=== PATIENT | male | born 1945 | race Caucasian/White ===

== ENCOUNTER 2018-04-23 09:54 | Observation (INO) | payer OTHER ==
--- OUTSIDE RECORDS SUMMARY | 2018-04-23 09:57 | XMS REPORT ---
:1945 Author Organization [facility] Address [address] [place] [address] [address] [place] [address] Care Team Providers Name Role Phone Unavailable Unavailable Unavailable Payers Payer Name Policy Type Policy Number Effective Date Expiration Date Problems This patient has no known problems. Allergies, Adverse Reactions, Alerts Allergy Name Allergy Status Severity Reaction(s) Onset Inactive Treating Comments Type Date Date Clinician No Known Drug DA Active U Intolerances 8-27 00:00: 00 Medications This patient has no known medications.
--- OUTSIDE RECORDS SUMMARY | 2018-04-23 09:57 | XMS REPORT | Clinical Summary ---
:1945 Author Organization [facility] Address [address] [place] [address] Care Team Providers Name Role Phone Mykel Crawford MD Primary Care Provider Unavailable Allergies No Known Allergies Medications Medication Sig Dispensed Refills Start Date End Date Status gabapentin Take 600 mg by mouth 3 (three) times a day. 1800mg po hs and 0 09/16/2015 Active (NEURONTIN) 300 MG 600mg po tid capsule HYDROcodone-acetam 2 tablets. q 0 11/02/2015 Active inophen (NORCO 4-6 hours 10-325) 10-325 mg per tablet quinapril 0 11/01/2015 Active (ACCUPRIL) 20 MG tablet traZODone 0 09/16/2015 Active (DESYREL) 150 MG tablet aspirin (ECOTRIN) Take 81 mg by 0 Active 81 MG enteric mouth. coated tablet simvastatin 0 04/27/2016 Active (ZOCOR) 40 MG tablet tiZANidine 0 04/28/2016 Active (ZANAFLEX) 4 MG tablet magnesium oxide Take 400 mg by 0 Active (MAG-OX) 400 mg mouth daily. tablet ipratropium-albute 0 08/09/2017 Active rol (DUO-NEB) 0.5-2.5 mg/mL nebulizer montelukast Take 10 mg by 0 Active (SINGULAIR) 10 mg mouth nightly. tablet albuterol (PROAIR Inhale 2 puffs 0 Active HFA,PROVENTIL every 6 (six) HFA,VENTOLIN HFA) hours as 90 mcg/actuation needed for inhaler wheezing. PRIMIDONE ORAL Take 50 mg by 0 Active mouth 2 (two) times a day. clopidogrel 0 10/20/2015 10/09/2017 Discontinued (PLAVIX) 75 mg tablet atenolol 0 04/12/2016 10/09/2017 Discontinued (TENORMIN) 25 MG tablet HYDROcodone-acetam Take 1 tablet 0 10/09/2017 Discontinued inophen (NORCO) by mouth. 10-325 mg per tablet hxda-hjpi-xzx-yuc- Take by mouth. 0 01/30/2018 Discontinued tpi-ymen-pwz [phone] mg tablet cholecalciferol, Take 5,000 0 10/09/2017 Discontinued vitamin D3, Units by mouth (VITAMIN D3) 1,000 daily. unit tablet selenium 50 mcg Take 50 mcg by 0 10/09/2017 Discontinued tablet mouth 2 (two) times a day. meloxicam (MOBIC) 0 09/11/2017 11/09/2017 Discontinued 7.5 mg tablet DULoxetine 0 07/27/2017 11/09/2017 Discontinued (CYMBALTA) 30 MG capsule celecoxib Take 1 capsule 18 capsule 0 11/09/2017 11/23/2017 Discontinued (CeleBREX) 200 MG (200 mg total) capsule by mouth daily for 18 days. With food DULoxetine Take 30 mg by 0 01/31/2018 Discontinued (CYMBALTA) 30 MG mouth daily. capsule Active Problems Problem Noted Date Aftercare following surgery of the musculoskeletal system 03/01/2018 Complication internal fixation device such as nail, plate, or gian 01/18/2018 Overview: Added automatically from request for surgery [id number] Postlaminectomy syndrome, lumbar region 01/18/2018 Overview: Added automatically from request for surgery [id number] Complication of internal fixation device 12/07/2017 Chronic midline posterior neck pain 05/03/2016 Arthrodesis status 11/05/2015 Lumbar post-laminectomy syndrome 11/05/2015 Low back pain 11/05/2015 Encounters Date Type Specialty Care Team Description 03/14/2018 Office Visit Orthopedic Surgery Rolo, Arthrodesis status ( Primary Dx); Tarik Castellon MD Lumbar post-laminectomy syndrome 03/01/2018 Office Visit Orthopedic Surgery Rolo, Aftercare following Tarik Castellon MD surgery of the musculoskeletal system (Primary Dx) 02/08/2018 Office Visit Orthopedic Surgery [facility] Aftercare following Tarik Castellon MD surgery of the musculoskeletal system (Primary Dx) 01/31/2018 Orders Only Orthopedic Surgery Linda Harden, PAAriela 01/30/2018 Surgery Orthopedic Surgery [facility], Remove L3-4-5 internal Tarik Castellon MD fixation , explore and augment fusion, resect the spinous processes of L1 & L2 01/30/2018 Anesthesia Event Orthopedic Surgery Sohan Yung MD 01/30/2018 Hospital Encounter Orthopedic Surgery [place], Complication internal fixation device such as nail, plate, or gian, initial encounter (HCC); Tarik Castellon MD Arthrodesis status; Postlaminectomy syndrome, lumbar region 01/21/2018 Prep for Surgery Orthopedic Surgery Linda Harden, PA-C 01/18/2018 Prep for Surgery Orthopedic Surgery Dereck, Complication internal fixation device such as nail, plate, or gian, initial encounter (HCC) ( Primary Dx); Linda Castellon Arthrodesis status; PA-C Postlaminectomy syndrome, lumbar region 01/17/2018 Documentation Orthopedic Surgery Linda Harden, PA-C 01/04/2018 Office Visit Orthopedic Surgery Mandyjhoan, Complication of internal fixation device, sequela (Primary Dx); Tarik Castellon MD Arthrodesis status; Lumbar post-laminectomy syndrome 12/14/2017 Hospital Encounter Radiology Tarik Seth MD 12/12/2017 Hospital Encounter Radiology [place], Complication of internal fixation device, subsequent encounter; Tarik Castellon MD Arthrodesis status; Chronic midline posterior neck pain 12/07/2017 Office Visit Orthopedic Surgery [place], Arthrodesis status ( Primary Dx); Tarik Castellon MD Lumbar post-laminectomy syndrome; Chronic right-sided low back pain with sciatica, sciatica laterality unspecified; Complication of internal fixation device, subsequent encounter 12/07/2017 Orders Only Orthopedic Surgery Dereck, Complication of internal fixation device, subsequent encounter (Primary Dx); Linda Castellon Arthrodesis status; PA-C Chronic midline posterior neck pain 11/23/2017 Office Visit Orthopedic Surgery [place], Lumbar post- laminectomy syndrome (Primary Dx); Tarik Castellon MD Arthrodesis status; Chronic bilateral low back pain with sciatica, sciatica laterality unspecified 11/09/2017 Hospital Encounter Radiology Tarik Seth MD 11/09/2017 Office Visit Orthopedic Surgery [place], Lumbar post- laminectomy syndrome (Primary Dx); Tarik Castellon MD Chronic bilateral low back pain with sciatica, sciatica laterality unspecified 10/25/2017 Telephone Orthopedic Surgery Tarik Seth MD 10/09/2017 Office Visit Orthopedic Surgery [place], Lumbar post- laminectomy syndrome (Primary Dx); Tarik Castellon MD Arthrodesis status; Acute low back pain, unspecified back pain laterality, with sciatica presence unspecified; Pain of right hip joint; History of right hip replacement after 04/22/2017 Family History Medical History Relation Name Comments Heart disease Mother Relation Name Status Comments Mother Social History Tobacco Use Types Packs/Day Years Used Date Current Every Day Smoker Smokeless Tobacco: Never Used Alcohol Use Drinks/Week oz/Week Comments No rare Alcohol Habits Answer Date Recorded How often do you have a drink containing alcohol? Never 01/30/2018 How many drinks containing alcohol do you have on a typical Not asked day when you are drinking? How often do you have six or more drinks on one occasion? Not asked Sex Assigned at Date Recorded Not on file Job Start Date Occupation Industry Not on file Not on file Not on file Travel History Travel Start Travel End No recent travel history available. Last Filed Vital Signs Vital Sign Reading Time Taken Blood Pressure 183/78 01/30/2018 3:46 PM [employer] Pulse 57 01/30/2018 3:46 PM [employer] Temperature 37.1 C (98.7 F) 01/30/2018 2:55 PM [employer] Respiratory Rate 19 01/30/2018 2:55 PM [employer] Oxygen Saturation 96% 01/30/2018 2:55 PM [employer] Inhaled Oxygen Concentration - - Weight 54.9 kg (121 lb) 02/08/2018 10:51 AM [employer] Height 172.7 cm (5' 8") 02/08/2018 10:51 AM [employer] Body Mass Index 18.4 02/08/2018 10:51 AM [employer] Plan of Treatment Date Type Specialty Care Team Description 06/07/2018 Office Visit Orthopedic Surgery Tarik Seth MD [address] [address] Health Maintenance Due Date Last Done Comments COLON CANCER SCREENING 1996 SHINGLES VACCINES (#1) 1996 65+ PNEUMOCOCCAL VACCINE (1 of 2 - PCV13) 10/20/2011 PNEUMOCOCCAL POLYSACCHARIDE VACCINE AGE 65 AND OVER 10/20/2011 INFLUENZA VACCINE 09/05/2017 Procedures Procedure Name Priority Date/Time Associated Comments Diagnosis XR LUMBAR SPINE 2 OR Routine 02/08/2018 10:59 Orthopedic Results for this 3 VW AM [employer] aftercare procedure are in the results section. SURGICAL PATHOLOGY Routine 01/30/2018 12:17 Results for this REQUEST PM [employer] procedure are in the results section. MN AN ELECTIVE Routine 01/30/2018 10:30 ENDOTRACHEAL AIRWAY AM [employer] Procedure Note - Sunday Barth CRNA - 01/30/2018 10:30 AM [employer] ANESTHESIA INTUBATION Date/Time: 01/30/2018 10:11 AM Performed by: Sunday Barth CRNA Authorized by: Sohan Yung MD Location: OR Urgency: Elective Difficult Airway: No Anesthesiologist: Sohan Yung MD Resident/TOUCHER UP/AA: Sunday Barth CRNA Performed by: resident/TOUCHER UP/AA Preoxygenated with 100% O2: Yes Mask Ventilation: Easy mask (100 mm OA; edentulous.) Final Airway Type: Endotracheal airway Final Endotracheal Airway: ETT Cuffed: Yes Technique Used: Direct laryngoscopy Devices/Methods Used in Placement: Intubating stylet Insertion Site: Oral Blade Type: Henley Laryngoscope Blade/Videolaryngoscope Blade Size: 2 ETT Size (mm): 8.0 Cuff at minimum occlusion pressure: Yes Measured from: Lips ETT to Lips (cm): 22 Placement Verified by: CO2 detection, direct visualization and equal breath sounds Laryngoscopic view: Grade I - full view of glottis Rapid Sequence Induction (RSI): No Modified RSI: No Number of Attempts at Approach: 1 HEMILAMINECTOMY, SPINE, 01/30/2018 10:15 AM Complication internal fixation LUMBAR, SINGLE LEVEL, [employer] device such as nail, plate, or POSTERIOR APPROACH gian, initial encounter (HCC) Arthrodesis status Postlaminectomy syndrome, lumbar region Case Notes POSSIBLE EXTENDED STAY Special Needs POSSIBLE EXTENDED STAY, Rajeev table, Synthese Click X removal system, universal removal set, WRS palencia and fusion sets, Ag matrix (5x2.5 cm) ESTIMATED GFR STAT 01/30/2018 8:37 AM Results for this [employer] procedure are in the results section. BASIC METABOLIC STAT 01/30/2018 8:37 AM Results for this PANEL [employer] procedure are in the results section. HC COMPLETE BLD STAT 01/30/2018 8:37 AM Results for this COUNT W/AUTO DIFF [employer] procedure are in the results section. IR FLUOROSCOPY Routine 12/14/2017 8:56 AM Complication of Results for this GUIDED LOCAL [employer] internal fixation procedure are in INJECTION device, subsequent the results encounter section. Arthrodesis status Chronic midline posterior neck pain MRI LUMBAR SPINE WO Routine 11/30/2017 8:30 AM Lumbar Results for this CONTRAST CDT post-laminectomy procedure are in syndrome the results Arthrodesis status section. Chronic bilateral low back pain with sciatica, sciatica laterality unspecified NM BONE SCAN Routine 10/22/2017 7:51 AM Results for this EXTERNAL STUDY CDT procedure are in the results section. XR LUMBAR SPINE Routine 10/09/2017 9:02 AM Lumbar Results for this COMPLETE 4+ VW CDT post-laminectomy procedure are in syndrome the results Arthrodesis status section. XR HIP 2-3 VIEWS Routine 10/09/2017 9:02 AM Pain of right hip Results for this RIGHT CDT joint procedure are in History of right hip the results replacement section. after 04/22/2017 Results XR Lumbar Spine 2 Or 3 Vw (02/08/2018 10:59 AM [employer]) Narrative Performed At AP and lateral x-rays of the lumbar spine today demonstrate postoperative HM [facility] changes at multiple levels.The previously noted pedicle screws are now absent.There is no change in overall alignment compared to those of the previous study. Performing Organization Address City/[facility]/Zipcode Phone Number [facility] [address] [place] [address] Surgical pathology request (01/30/2018 12:17 PM [employer]) [facility] DEPARTMENT OF PATHOLOGY AND GENOMIC MEDICINE Surgical pathology report See link below for PDF [facility] DEPARTMENT OF Lab Report PATHOLOGY AND GENOMIC MEDICINE Result status This is Final Report [facility] DEPARTMENT OF for [id number] PATHOLOGY AND GENOMIC MEDICINE Performing Organization Address City/[facility]/Zipcode Phone Number [facility] DEPARTMENT OF PATHOLOGY AND [address] [place] [address] GENOMIC MEDICINE Estimated GFR (01/30/2018 8:37 AM [employer]) Estimated GFR 75 mL/min/1.73 m2 LOU [facility] Comment: [facility]IENT [facility]ENTER CatergoryUnitsInterpretation G1 >=90 Normal or high G2 60-89Mildly decreased [id number] to moderately decreased [id number] to severely decreased G4 15-29Severely decreased G5 <15Kidney failure The eGFR was calculated using the Chronic Kidney Disease Epidemiology Collaboration (CKD-EPI) equation. Interpretation is based on recommendations of the National Kidney Foundation-Kidney Disease Outcomes Quality Initiative (NKF-KDOQI) published in 2014. Specimen Plasma specimen Performing Organization Address City/[facility]/Zipcode Phone Number [facility] DEPARTMENT OF PATHOLOGY AND [address] [place] [phone] CBC with platelet and differential (01/30/2018 8:37 AM [employer]) WBC 6.11 4.50 - 11.00 k/uL [facility] RBC 4.47 4.40 - 6.00 m/uL [facility] HGB 14.2 14.0 - 18.0 g/dL [facility] HCT 44.5 41.0 - 51.0 % [facility] MCV 99.6 82.0 - 100.0 fL [facility] MCH 31.8 27.0 - 34.0 pg [facility] MCHC 31.9 31.0 - 37.0 g/dL [facility] RDW - SD 51.2 37.0 - 55.0 fL [facility] MPV 9.4 8.8 - 13.2 fL [facility] Platelet count 141 (L) 150 - 400 k/uL [facility] Neutrophils 63.9 39.0 - 69.0 % [facility] Lymphocytes 29.1 25.0 - 45.0 % [facility] Monocytes 6.2 0.0 - 10.0 % [facility] Eosinophils 0.5 0.0 - 5.0 % [facility] Basophils 0.3 0.0 - 1.0 % [facility] Specimen Blood Performing Organization Address City/State/Zipcode Phone Number [facility] DEPARTMENT OF PATHOLOGY AND [address] [place] [address] [address] Basic metabolic panel (01/30/2018 8:37 AM [employer]) Sodium 137 135 - 148 mEq/L [facility] Potassium 5.4 (H) 3.5 - 5.0 mEq/L [facility] Chloride 102 98 - 112 mEq/L [facility] CO2 27 24 - 31 mEq/L [facility] Anion gap 8@ANIO 7 - 15 mEq/L [facility] BUN 14 8 - 23 mg/dL [facility] Creatinine 1.00 0.70 - 1.20 mg/dL [facility] Glucose 85 65 - 99 mg/dL [facility] Calcium 8.8 8.8 - 10.2 mg/dL [facility] Specimen Plasma specimen Performing Organization Address City/State/Zipcode Phone Number [facility] DEPARTMENT OF PATHOLOGY AND [address] [place] [address] GENOMIC MEDICINE [facility] [address] [place] [address] IR Fluoroscopy Guided Local Injection (12/14/2017 8:56 AM [employer]) Narrative Performed At EXAMINATION:Fluoroscopic-guided bilateral L3-L5 hardware HM [facility] infiltration with local anesthetic and steroids. CLINICAL HISTORY:T84.9XXD Unspecified complication of internal orthopedic prosthetic deviceimplant and graftsubsequent encounter, Z98.1 Arthrodesis status, back and right hip pain COMPARISON:None. Findings: Informed consent was obtained. The lower back was prepped and draped in usual sterile fashion. 1% lidocaine was as for local anesthesia. Under intermittent fluoroscopic guidance, 25-gauge needle was advanced at the junction of the left L4 transpedicular screw in the L4 vertebra and another 25-gauge needle was advanced to the junction of the right L5 transpedicular screw and L5 vertebra. Injection of 2-3 cc of Omnipaque 240 in each needle did not show any significant vasculature. Then 1.5 cc of Marcaine 0.25% and 6 mg of dexamethasone were injected into each needle. No complications. Total fluoroscopic time was 1.4 minutes. Total radiation dose was 47 mGy. IMPRESSION: Successful bilateral L3-L5 hardware infiltration with local anesthetic and steroids. [id number] Procedure Note Hm Interface, Radiology Results Incoming - 12/14/2017 11:31 AM [employer] EXAMINATION: Fluoroscopic-guided bilateral L3-L5 hardware infiltration with local anesthetic and steroids. CLINICAL HISTORY: T84.9XXD Unspecified complication of internal orthopedic prosthetic device implant and graft subsequent encounter, Z98.1 Arthrodesis status, back and right hip pain COMPARISON: None. Findings: Informed consent was obtained. The lower back was prepped and draped in usual sterile fashion. 1% lidocaine was as for local anesthesia. Under intermittent fluoroscopic guidance, 25-gauge needle was advanced at the junction of the left L4 transpedicular screw in the L4 vertebra and another 25-gauge needle was advanced to the junction of the right L5 transpedicular screw and L5 vertebra. Injection of 2-3 cc of Omnipaque 240 in each needle did not show any significant vasculature. Then 1.5 cc of Marcaine 0.25% and 6 mg of dexamethasone were injected into each needle. No complications. Total fluoroscopic time was 1.4 minutes. Total radiation dose was 47 mGy. IMPRESSION: Successful bilateral L3-L5 hardware infiltration with local anesthetic and steroids. [id number] Performing Organization Address City/State/Zipcode Phone Number [facility] [address] [place] [address] MRI Lumbar Spine Wo Contrast (11/30/2017 8:30 AM CDT) Narrative Performed At EXAMINATION: MRI LUMBAR SPINE WO CONTRAST [facility] CLINICAL HISTORY: M96.1 Postlaminectomy syndromenot elsewhere classified, Z98.1 Arthrodesis status, Back [id number] conservative txpersistent sx COMPARISON:Lumbar spine x-rays from October 09, 2017. TECHNIQUE: Multiplanar multisequence noncontrast enhanced examination was performed of the Lumbar spine. FINDINGS: The lumbar curvature is convex towards the left. There is increased lumbar lordosis. There are degenerative changes of the upper sacroiliac joints. 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 There is no significant narrowing of the subarachnoid space from hypertrophic changes at the L5- S1 disc space level. There are congenital areas of narrowing of portions of the disc space. There is congenital deformity of the left L5-S1 foramen which shows prominent narrowing which can be further evaluated with a CT exam. There is severe right fora men stenosis from hypertrophic changes and possibly in part congenital in nature. There is mild congenital canal stenosis. There is a left paracentral fluid collection posterior to the posterior elements beginning at the S2 level and extending up to the L3-4 disc space level. There is another fluid collection in the anterio r portion of the posterior paraspinal muscles behind the laminectomy beginning at the lower L2 level extending down to the upper L4 level which appears to be continuous with the lower collection. L4-5: There is greater posterior disc space narrowing. There is posterior fusion on the left from L2 to L4 with pedicle screws at L2 and L4 connected by a vertical gian. There may be some lucency in the bone surrounding the left pedicle screw on some of the x-rays from October and this can be better evaluated with a CT exam. There is left posterior fusion at L3-4 with pedicle screws connected by vertical rods. There is calcification in the L4-5 disc on the x-rays. There is fusion material within the L3-4 disc on the x-rays. There is bulge and facet hypertrophic changes. There is no significant canal stenosis. There is severe foramen stenosis. L3-4: There is anterior and posterior fusion as described above. There is laminectomy and enlargement of the subarachnoid space. Artifacts obscure some signal in the foramen although there appears to be fat signal in the foramen in the region of the nerves in the areas not obscured by artifacts. There may be right extraforaminal spondylosis near the nerve. L2-3: There is severe posterior disc space narrowing. There is retrolisthesis with uncovered disc and spondylosis indenting the anterior subarachnoid space, greater in the central an left paracentral re gion where it extends into the region of the nerve roots. There is laminectomy and enlargement of the posterior subarachnoid space. Artifacts obscure some detail of the foramen. There is severe foramen stenosis however in the areas not obscured by artif acts suggested on the axial T2 and sagittal images. L1-2: There is severe posterior disc space narrowing.There is mild retrolisthesis with uncovered disc. There is left paracentral spondylosis indenting the subarachnoid space near the nerve roots. Th ere are facet and ligamentum flavum hypertrophic changes. There is mild central canal stenosis with greater narrowing on the left. There is moderate to severe left and moderate right foramen stenosis. The distal cord ends at the L1 level. There is dorsal spondylosis on the sagittal images indenting the anterior cord at T12-L1 with at least moderate canal stenosis at this level which can be better tiffany luated with MRI thoracic spine or myelogram. There is left paracentral shallow protrusion at T11-12 indenting the subarachnoid space. The study was not performed for proper imaging of soft tissue structures in the abdomen and pelvis. There is involution of the posterior paraspinal muscles. There are postoperative changes of the right iliac bone suggesting site of bone harvesting. There are multiple masses in both kidneys with increased T1 and decreased T2 signal suggesting hemorrhagic cysts which can be better evaluated with ultrasound. There is nonspecific asymmetric decreased size of the right kidney. Recommend clinical correlation. Further evaluation with ultrasound of the kidney and renal arteries can be performed if indicated. There are a few fluid signal intensity cysts in the kidneys. There are nonspecific areas of aneurysm enlargement of the aorta which can be better evaluated with other imaging. The AP dimension of the wall of the aorta measures 3.9 cm at the L4-5 level. IMPRESSION: Postoperative changes. Multilevel areas of canal and foramen stenosis as described. Congenital malformation of the upper sacrum which can be better evaluated with CT exam. Postoperative fluid collection in the posterior paraspinal muscles. Nonspecific complicated cysts in the kidneys which can be better evaluated with ultrasound. Nonspecific asymmetric decreased size of the right kidney which can be further evaluated with ultrasound. Areas of aneurysm enlargement of the aorta which can be further evaluated with other imaging. There is posterior fusion on the left from L2 to L4 with pedicle screws at L2 and L4 connected by a vertical gian. There may be some lucency in the bone surrounding the left pedicle screw on some of the x-rays from October and this can be better evaluated with a CT exam. There is dorsal spondylosis on the sagittal images indenting the anterior cord at T12-L1 with at least moderate canal stenosis at this level which can be better evaluated with MRI thoracic spine or myelogram. [facility]-[id number] Procedure Note Hm Interface, Radiology Results Incoming - 11/30/2017 11:31 AM CDT EXAMINATION: MRI LUMBAR SPINE WO CONTRAST CLINICAL HISTORY: M96.1 Postlaminectomy syndrome not elsewhere classified, Z98.1 Arthrodesis status, Back pain 6wks conservative tx persistent sx COMPARISON: Lumbar spine x-rays from October 09, 2017. TECHNIQUE: Multiplanar multisequence noncontrast enhanced examination was performed of the Lumbar spine. FINDINGS: The lumbar curvature is convex towards the left. There is increased lumbar lordosis. There are degenerative changes of the upper sacroiliac joints. 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 There is no significant narrowing of the subarachnoid space from hypertrophic changes at the L5-S1 disc space level. There are congenital areas of narrowing of portions of the disc space. There is congenital deformity of the left L5-S1 foramen which shows prominent narrowing which can be further evaluated with a CT exam. There is severe right foramen stenosis from hypertrophic changes and possibly in part congenital in nature. There is mild congenital canal stenosis. There is a left paracentral fluid collection posterior to the posterior elements beginning at the S2 level and extending up to the L3-4 disc space level. There is another fluid collection in the anterior portion of the posterior paraspinal muscles behind the laminectomy beginning at the lower L2 level extending down to the upper L4 level which appears to be continuous with the lower collection. L4-5: There is greater posterior disc space narrowing. There is posterior fusion on the left from L2 to L4 with pedicle screws at L2 and L4 connected by a vertical gian. There may be some lucency in the bone surrounding the left pedicle screw on some of the x-rays from October and this can be better evaluated with a CT exam. There is left posterior fusion at L3-4 with pedicle screws connected by vertical rods. There is calcification in the L4-5 disc on the x-rays. There is fusion material within the L3-4 disc on the x-rays. There is bulge and facet hypertrophic changes. There is no significant canal stenosis. There is severe foramen stenosis. L3-4: There is anterior and posterior fusion as described above. There is laminectomy and enlargement of the subarachnoid space. Artifacts obscure some signal in the foramen although there appears to be fat signal in the foramen in the region of the nerves in the areas not obscured by artifacts. There may be right extraforaminal spondylosis near the nerve. L2-3: There is severe posterior disc space narrowing. There is retrolisthesis with uncovered disc and spondylosis indenting the anterior subarachnoid space, greater in the central an left paracentral region where it extends into the region of the nerve roots. There is laminectomy and enlargement of the posterior subarachnoid space. Artifacts obscure some detail of the foramen. There is severe foramen stenosis however in the areas not obscured by artifacts suggested on the axial T2 and sagittal images. L1-2: There is severe posterior disc space narrowing. There is mild retrolisthesis with uncovered disc. There is left paracentral spondylosis indenting the subarachnoid space near the nerve roots. There are facet and ligamentum flavum hypertrophic changes. There is mild central canal stenosis with greater narrowing on the left. There is moderate to severe left and moderate right foramen stenosis. The distal cord ends at the L1 level. There is dorsal spondylosis on the sagittal images indenting the anterior cord at T12-L1 with at least moderate canal stenosis at this level which can be better evaluated with MRI thoracic spine or myelogram. There is left paracentral shallow protrusion at T11-12 indenting the subarachnoid space. The study was not performed for proper imaging of soft tissue structures in the abdomen and pelvis. There is involution of the posterior paraspinal muscles. There are postoperative changes of the right iliac bone suggesting site of bone harvesting. There are multiple masses in both kidneys with increased T1 and decreased T2 signal suggesting hemorrhagic cysts which can be better evaluated with ultrasound. There is nonspecific asymmetric decreased size of the right kidney. Recommend clinical correlation. Further evaluation with ultrasound of the kidney and renal arteries can be performed if indicated. There are a few fluid signal intensity cysts in the kidneys. There are nonspecific areas of aneurysm enlargement of the aorta which can be better evaluated with other imaging. The AP dimension of the wall of the aorta measures 3.9 cm at the L4-5 level. IMPRESSION: Postoperative changes. Multilevel areas of canal and foramen stenosis as described. Congenital malformation of the upper sacrum which can be better evaluated with CT exam. Postoperative fluid collection in the posterior paraspinal muscles. Nonspecific complicated cysts in the kidneys which can be better evaluated with ultrasound. Nonspecific asymmetric decreased size of the right kidney which can be further evaluated with ultrasound. Areas of aneurysm enlargement of the aorta which can be further evaluated with other imaging. There is posterior fusion on the left from L2 to L4 with pedicle screws at L2 and L4 connected by a vertical gian. There may be some lucency in the bone surrounding the left pedicle screw on some of the x-rays from October and this can be better evaluated with a CT exam. There is dorsal spondylosis on the sagittal images indenting the anterior cord at T12-L1 with at least moderate canal stenosis at this level which can be better evaluated with MRI thoracic spine or myelogram. [facility]-[id number] Performing Organization Address City/State/Zipcode Phone Number [facility] [address] [place] [address] NM Bone Scan External Study (10/22/2017 7:51 AM CDT) Narrative Performed At This exam was not acquired at a [facility] facility and has not been [facility] interpreted by a [facility] Provider.The exam was imported into our imaging system for comparisons purposes. Performing Organization Address [facility] Phone Number [facility] [address] [place] [address] XR Hip 2-3 View Right (10/09/2017 9:02 AM CDT) Narrative Performed At AP and lateral x-ray of the right hip reveals a total hip prosthesis to be [facility] in satisfactory position.I see no significant bony abnormalities around the area and no lucent zone around the implants. Performing Organization Address [facility] Phone Number [facility] [address] [place] [address] XR Lumbar Spine Complete 4+ Vw (10/09/2017 9:02 AM CDT) Narrative Performed At Lumbar spine x-rays and 4 views today demonstrate extensive postoperative [facility] changes.Internal fixation devices noted at L3, L4, and L5 which are in good position and are intact.Interbody cages and fusion has been achieved at these levels as well.A central decompressive laminectomy is carried out cephalad to the fusion and a laminotomy is noted at L1-L2. There is significant narrowing of the L1-L2 disc space with sclerotic reaction. Performing Organization Address [facility] Phone Number [facility] [address] [place] [address] after 04/22/2017 Insurance Payer Benefit Plan / Group Subscriber ID Type Phone Address [employer] MEDICARE HU[employer]NA MEDICARE PPO/PFFS/ERS [facility] xxxxxxxxx PPO Advance Directives Patient has advance care planning documents on file. For more information, please contact:Hai Manley[address] [place] [address]
--- NOTE | 2018-04-23 11:31 | RAD REPORT ---
EXAM DESCRIPTION: US - Renal Ultrasound-Complete - 04/23/2018 11:14 am CLINICAL HISTORY: Acute renal insufficiency COMPARISON: None. FINDINGS: The right kidney measures 10 cm with an increased echotexture. The left kidney measures 12 cm with an increased echotexture. Mild hydronephrosis Bilateral renal cysts. Largest extends off the right kidney measuring 4.3 centimeters Prostate gland is enlarged No gross abnormality of bladder is seen IMPRESSION: Increased renal echotexture consistent with parenchymal disease Mild left hydronephrosis
[2018-04-23 11:45] LABS: Absolute Lymphocytes (CBC) 1.8 K/uL (0.7-4.9); Absolute Monocytes 0.6 K/uL (0.1-1.3); Absolute Neutrophil 5.3 K/uL (1.8-8.0); Basophils % 0.3 % (0-1.3); Eosinophils % 0.4 % (0-4.4); Hematocrit 43.8 % (39.6-49.0); Lymphocytes % 22.9 % (15.3-44.8); MPV 8.1 fL (7.6-11.3); Monocytes % 7.9 % (3.3-12.3); RBC Red Blood Cell Count 4.52 M/uL (4.33-5.43)
[2018-04-23] MEDS ORDERED: NA CHLORIDE 0.9% 1,000 ML ONE ×2 (11:47→12:41)
[2018-04-23 11:59] LABS: Albumin 3.1 g/dL (3.4-5.0); Bilirubin Direct 0.2 mg/dL (0-0.2); Bilirubin Total 0.4 mg/dL (0.2-1.0); Potassium 5.4 mmol/L (3.5-5.1); Protein, Total 7.9 g/dL (6.4-8.2)
--- NOTE | 2018-04-23 12:10 | ER ---
Nurse's Notes [facility] Name: Leon Garza Age: 72 yrs Sex: Male : 1945 Arrival Date: 04/23/2018 Time: 09:56 Bed 25 Private MD: Diagnosis: Acute kidney failure;Dehydration;Hyperkalemia Presentation: 04/23 09:59 Presenting complaint: states: dehydrated, sent by Dr Mendez to get looked at stated sv that he has lost 50% of his kidney function. Labs drawn last week. Transition of care: patient was not received from another setting of care. Onset of symptoms is unknown. Care prior to arrival: None. 09:59 Method Of Arrival: Wheelchair sv 09:59 Acuity: TARAH 3 sv 10:35 Initial Sepsis Screen: Does the patient meet any 2 criteria? No. Patient's initial ls4 sepsis screen is negative. Does the patient have a suspected source of infection? No. Patient's initial sepsis screen is negative. 10:35 Risk Assessment: Do you want to hurt yourself or someone else? Patient reports no ls4 desire to harm self or others. Triage Assessment: 10:29 General: Appears ill, Behavior is calm, cooperative. Pain: Pain currently is 6 out of ls4 10 on a pain scale. Respiratory: Airway Respiratory effort is even, unlabored, Respiratory pattern is regular. GI: Abdomen is round Bowel sounds present X 4 quads. Derm: Skin is fragile, is thin, with poor turgor has skin tears on right upper arm. Musculoskeletal: Circulation, motion, and sensation intact. Capillary refill < 3 seconds, Range of motion: limited in all extremities, weakness. Historical: - Allergies: 10:01 No Known Allergies; sv - PMHx: 10:01 Tremors; Hypertension; COPD; High Cholesterol; sv 10:02 Bladder cancer; sv - PSHx: 10:01 Open heart; back; Hernia repair; hip; Cholecystectomy; leg; sv 10:02 neck; sv - Immunization history:: Flu vaccine is not up to date. - Social history:: Smoking status: Patient uses tobacco products, smokes two packs cigarettes per day. - Ebola Screening: : No symptoms or risks identified at this time. Screenin:34 Abuse screen: Denies threats or abuse. Denies injuries from another. Nutritional ls4 screening: No deficits noted. Tuberculosis screening: No symptoms or risk factors identified. Fall Risk Fall in past 12 months (25 points). Secondary diagnosis (15 points) IV access (20 points). Ambulatory Aid- None/Bed Rest/Nurse Assist (0 pts). Gait- Impaired (20 pts.). Mental Status- Oriented to own ability (0 pts). Sepsis Screening:. Assessment: 11:25 Reassessment: No changes from previously documented assessment. Patient and/or family ls4 updated on plan of care and expected duration. Pain level reassessed. Patient is alert, oriented x 3, equal unlabored respirations, skin warm/dry/pink. 13:30 Reassessment: No changes from previously documented assessment. Patient and/or family ls4 updated on plan of care and expected duration. Pain level reassessed. Patient is alert, oriented x 3, equal unlabored respirations, skin warm/dry/pink. 14:30 Reassessment: No changes from previously documented assessment. ls4 Vital Signs: 10:01 BP 141 / 84; Pulse 73; Resp 20; Temp 98.3; Weight 57.15 kg; Height 5 ft. 7 in. (170.18 sv cm); Pain 6/10; 12:00 BP 132 / 66; Pulse 72; Resp 16; Pulse Ox 99% on R/A; Pain 6/10; ls4 14:00 BP 136 / 88; Pulse 76; Resp 20; Temp 98.1; Pulse Ox 99% on R/A; Pain 6/10; ls4 14:59 BP 128 / 77; Pulse 74; Resp 20; Pulse Ox 99% on R/A; Pain 6/10; ls4 10:01 Body Mass Index 19.73 (57.15 kg, 170.18 cm) sv ED Course: 09:56 Patient arrived in ED. mr 09:59 Triage completed. sv 10:02 Arm band placed on. sv 10:04 Mandy Oglesby, ERIK is Primary Nurse. ls4 10:05 Barrera Mccarty PA is PHCP. jr8 10:05 Young Coy MD is Attending Physician. jr8 10:34 Patient has correct armband on for positive identification. Placed in gown. Bed in low ls4 position. Call light in reach. Side rails up X 1. pin chaser on. Pulse ox on. NIBP on. 10:34 No provider procedures requiring assistance completed. ls4 11:00 Missed attempt(s): 22 gauge in right forearm. ss 11:14 Rp Exam Complete US In Process Unspecified. EDMS 11:28 Inserted saline lock: 22 gauge in right antecubital area, using aseptic technique. ss Blood collected. 12:09 Sandra Zapata MD is Hospitalizing Provider. jr8 15:01 Patient admitted, IV remains in place. intact. ls4 Administered Medications: 11:40 Drug: NS 0.9% 1000 ml Route: IV; Rate: 1000 ml; Site: right upper arm; ls4 13:16 Follow up: IV Status: Completed infusion; IV Intake: 1000ml ls4 12:35 Drug: NS 0.9% 1000 ml Route: IV; Rate: 1000 ml; Site: right antecubital; ls4 12:36 Drug: Insulin Regular Human 10 units {Co-Signature: ca1 (Karla Del Angel RN).} Route: IVP; ls4 Site: right antecubital; 13:16 Follow up: Response: No adverse reaction ls4 12:36 Drug: D50W 50 ml Route: IVP; Site: right antecubital; ls4 13:16 Follow up: Response: No adverse reaction ls4 Intake: 13:16 IV: 1000ml; Total: 1000ml. ls4 Outcome: 12:09 Decision to Hospitalize by Provider. jr8 15:00 Admitted to Tele accompanied by tech, via stretcher, room 407, on monitor, with chart, ls4 Report called to VANNA 15:00 Condition: stable 15:30 Patient left the ED. mg2 Signatures: Dispatcher [employer] EDLA Tammy Vora RN RN sv Rivera, Mary mr Ni Stovall RN RN Barrera Mccarty PA PA jr8 Walter Alaniz RN RN mg2 Mandy Oglesby RN RN ls4 Karla Del Angel RN ca1
--- NOTE | 2018-04-23 12:10 | EDPHYS ---
Physician Documentation [facility] Name: Leon Garza Age: 72 yrs Sex: Male : 1945 Arrival Date: 04/23/2018 Time: 09:56 Bed 25 Private MD: ED Physician Young Coy HPI: 04/23 11:03 This 72 yrs old Male presents to ER via Wheelchair with complaints of jr8 Dehydrated. 11:03 Onset: The symptoms/episode began/occurred at an unknown time. Associated signs and jr8 symptoms: The patient has no apparent associated signs or symptoms. Modifying factors: The patient symptoms are alleviated by nothing, the patient symptoms are aggravated by nothing. The patient has not experienced similar symptoms in the past. The patient has been recently seen by a physician:. 11:04 Patient sent over by Dr. Mendez after reviewing his labs from 4 days ago. Stated that he jr8 is in acute renal failure. Had recently been on a medication for essential tremor and taken off for adverse affects. Patient stated that other then general fatigue has no other complaint . Historical: - Allergies: 10:01 No Known Allergies; sv - PMHx: 10:01 Tremors; Hypertension; COPD; High Cholesterol; sv 10:02 Bladder cancer; sv - PSHx: 10:01 Open heart; back; Hernia repair; hip; Cholecystectomy; leg; sv 10:02 neck; sv - Immunization history:: Flu vaccine is not up to date. - Social history:: Smoking status: Patient uses tobacco products, smokes two packs cigarettes per day. - Ebola Screening: : No symptoms or risks identified at this time. ROS: 11:04 Eyes: Negative for injury, pain, redness, and discharge, ENT: Negative for injury, jr8 pain, and discharge, Neck: Negative for injury, pain, and swelling, Cardiovascular: Negative for chest pain, palpitations, and edema, Respiratory: Negative for shortness of breath, cough, wheezing, and pleuritic chest pain, Abdomen/GI: Negative for abdominal pain, nausea, vomiting, diarrhea, and constipation, Back: Negative for injury and pain, MS/Extremity: Negative for injury and deformity, Skin: Negative for injury, rash, and discoloration, Neuro: Negative for headache, weakness, numbness, tingling, and seizure. 11:04 Constitutional: Positive for fatigue. Exam: 11:04 Eyes: Pupils equal round and reactive to light, extra-ocular motions intact. Lids and jr8 lashes normal. Conjunctiva and sclera are non-icteric and not injected. Cornea within normal limits. Periorbital areas with no swelling, redness, or edema. ENT: Nares patent. No nasal discharge, no septal abnormalities noted. Tympanic membranes are normal and external auditory canals are clear. Oropharynx with no redness, swelling, or masses, exudates, or evidence of obstruction, uvula midline. Mucous membranes moist. Neck: Trachea midline, no thyromegaly or masses palpated, and no cervical lymphadenopathy. Supple, full range of motion without nuchal rigidity, or vertebral point tenderness. No Meningismus. Cardiovascular: Regular rate and rhythm with a normal S1 and S2. No gallops, murmurs, or rubs. Normal PMI, no JVD. No pulse deficits. Respiratory: Lungs have equal breath sounds bilaterally, clear to auscultation and percussion. No rales, rhonchi or wheezes noted. No increased work of breathing, no retractions or nasal flaring. Abdomen/GI: Soft, non-tender, with normal bowel sounds. No distension or tympany. No guarding or rebound. No evidence of tenderness throughout. Back: No spinal tenderness. No costovertebral tenderness. Full range of motion. Skin: Warm, dry with normal turgor. Normal color with no rashes, no lesions, and no evidence of cellulitis. MS/ Extremity: Pulses equal, no cyanosis. Neurovascular intact. Full, normal range of motion. Neuro: Awake and alert, GCS 15, oriented to person, place, time, and situation. Cranial nerves II-XII grossly intact. Motor strength 5/5 in all extremities. Sensory grossly intact. Cerebellar exam normal. Normal gait. Vital Signs: 10:01 BP 141 / 84; Pulse 73; Resp 20; Temp 98.3; Weight 57.15 kg; Height 5 ft. 7 in. (170.18 sv cm); Pain 6/10; 12:00 BP 132 / 66; Pulse 72; Resp 16; Pulse Ox 99% on R/A; Pain 6/10; ls4 14:00 BP 136 / 88; Pulse 76; Resp 20; Temp 98.1; Pulse Ox 99% on R/A; Pain 6/10; ls4 14:59 BP 128 / 77; Pulse 74; Resp 20; Pulse Ox 99% on R/A; Pain 6/10; ls4 10:01 Body Mass Index 19.73 (57.15 kg, 170.18 cm) sv MDM: 10:05 Patient medically screened. [facility] 12:08 Data reviewed: vital signs, nurses notes, lab test result(s), radiologic studies, [facility] ultrasound, and as a result, I will admit patient. Data interpreted: Pulse oximetry: on room air is 98 %. Interpretation: normal. Counseling: I had a detailed discussion with the patient and/or guardian regarding: the historical points, exam findings, and any diagnostic results supporting the discharge/admit diagnosis, lab results, radiology results, the need for further work-up and treatment in the hospital. Physician consultation: Sandra Zapata MD was called at 12:08, was contacted at 12:08, regarding admission, to the telemetry unit. consult, patient's condition, and will see patient. 04/23 10:37 Order name: Basic Metabolic Panel; Complete Time: 12:05 [facility] 04/23 10:37 Order name: CBC with Diff; Complete Time: 11:50 [facility] 04/23 10:37 Order name: Creatinine for Radiology; Complete Time: 11:58 [facility] 04/23 10:37 Order name: Hepatic Function; Complete Time: 12:05 [facility] 04/23 10:38 Order name: Rp Exam Complete US; Complete Time: 11:32 [facility] 04/23 10:37 Order name: IV Saline Lock; Complete Time: 11:32 [facility] 04/23 10:37 Order name: Labs collected and sent; Complete Time: 11: [facility] 04/23 13:26 Order name: Diet Low Potassium; Complete Time: 13:27 ls4 Administered Medications: 11:40 Drug: NS 0.9% 1000 ml Route: IV; Rate: 1000 ml; Site: right upper arm; ls4 13:16 Follow up: IV Status: Completed infusion; IV Intake: 1000ml ls4 12:35 Drug: NS 0.9% 1000 ml Route: IV; Rate: 1000 ml; Site: right antecubital; ls4 12:36 Drug: Insulin Regular Human 10 units {Co-Signature: ca1 (Karla Del Angel RN).} Route: IVP; ls4 Site: right antecubital; 13:16 Follow up: Response: No adverse reaction ls4 12:36 Drug: D50W 50 ml Route: IVP; Site: right antecubital; ls4 13:16 Follow up: Response: No adverse reaction ls4 Disposition: 16:54 Co-signature as Attending Physician, Young Coy MD I agree with the assessment and taras plan of care. Disposition: 04/23/18 12:09 Hospitalization ordered by Sandra Zapata for Inpatient Admission. Preliminary diagnosis are Acute kidney failure, Dehydration, Hyperkalemia. - Bed requested for Telemetry/MedSurg (Inpatient). - Status is Inpatient Admission. mg2 - Condition is Stable. - Problem is new. - Symptoms have improved. UTI on Admission? No Signatures: Dispatcher [employer] EDTammy Morataya RN RN Adrianna Mahajan RN RN dw Young Coy MD MD cha Roszak, Josh, PA PA jr8 Walter Alaniz RN RN mg2 Mandy Oglesby RN RN ls4 Karla Del Angel RN ca1 Corrections: (The following items were deleted from the chart) 14:40 12:09 Hospitalization Ordered by Sandra Zapata MD for Inpatient Admission. Preliminary dw diagnosis is Acute kidney failure; Dehydration; Hyperkalemia. Bed requested for Telemetry/MedSurg (Inpatient). Status is Inpatient Admission. Condition is Stable. Problem is new. Symptoms have improved. UTI on Admission? No. jr8 15:30 14:40 04/23/2018 12:09 Hospitalization Ordered by Sandra Zapata MD for Inpatient mg2 Admission. Preliminary diagnosis is Acute kidney failure; Dehydration; Hyperkalemia. Bed requested for Telemetry/MedSurg (Inpatient). Status is Inpatient Admission. Condition is Stable. Problem is new. Symptoms have improved. UTI on Admission? No. dw
[2018-04-23] MEDS ORDERED: D50W 25 GM/50 ML SYRINGE IV ONE (12:41)
[2018-04-23] MEDS ORDERED: INSULIN -REGULAR HUMAN 50 UNIT/0.5 ML ML ONE (12:41)
[2018-04-23] MEDS ORDERED: ONDANSETRON 4 MG/2 ML VIAL IV PRN (15:42)
[2018-04-23] MEDS ORDERED: ACETAMINOPHEN 500 MG TAB PO PRN (15:42)
[2018-04-23] MEDS: HYDRALAZINE HCL 20 MG/ML VIAL IV PRN ×2 (16:42→23:44)
[2018-04-23] MEDS: NA CHLORIDE 0.9% 1,000 ML IV SCH (16:42)
[2018-04-23 16:48] LABS: Urine Appearance CLOUDY; Urine Bilirubin NEGATIVE (NEG); Urine Blood 3+ (NEG); Urine Color YELLOW; Urine Glucose NEGATIVE (NEG); Urine Protein TRACE (NEG)
[2018-04-23 16:50] LABS: Urine Microscopic Reflex ORDER UMIC
[2018-04-23 16:59] LABS: Urine RBC LOADED /HPF (NONE SEEN)
[2018-04-23 17:00] LABS: Urine Bacteria 20-50 /HPF (NONE SEEN); Urine Culture Reflex Order NOT NEEDED
[2018-04-23] MEDS ORDERED: PNEUMOCOCCAL VACCINE 0.5 ML IMVAC ONE (17:00)
[2018-04-23] MEDS ORDERED: SOD POLYSTYREN SUL 15 GM/60 ML UCUP PO ONE (20:00)
[2018-04-23 21:19] LABS: Urine Appearance CLEAR; Urine Bilirubin NEGATIVE (NEG); Urine Blood 3+ (NEG); Urine Color YELLOW; Urine Glucose NEGATIVE (NEG); Urine Protein NEGATIVE (NEG); Urine pH 7.5 (5.0-7.0)
[2018-04-23 21:20] LABS: Urine Microscopic Reflex ORDER UMIC
[2018-04-23 21:22] LABS: Urine Protein/Creatinine Ratio 1.44 ratio (<0.15)
[2018-04-23 21:49] LABS: Urine Bacteria <20 /HPF (NONE SEEN); Urine Culture Reflex Order NOT NEEDED; Urine RBC 20-50 /HPF (NONE SEEN)
[2018-04-23] MEDS: TRAZODONE 150 MG TAB PO SCH (23:42)
[2018-04-23] MEDS: TIZANIDINE 4 MG TABLET PO SCH (23:42)
[2018-04-23] MEDS: HYDROCODONE/APAP 10/325 TAB PO PRN (23:43)
--- NOTE | 2018-04-24 01:55 | HP ---
Date of Admission: 04/23/2018 Chief Complaint: Direct admission from Dr. Mendez's office for abnormal kidney function. Code Status: Do not intubate. is at the bedside. The patient is okay with CPR, but does not w stephanie to be placed on ventilator. Primary Care Physician: Dr. Glass. Neurologist: Dr. Mendez. Consultants: Dr. Smalls with Nephrology. History Of Present Illness: The patient is a 72-year-old male with past medical history of heart dis ease, hypertension, hyperlipidemia, COPD, and essential tremors, comes in with abnormal labs due to m edication for his tremors. The patient was started on primidone for his essential tremors and has degroot d worsening kidney function while on the medication. The patient was therefore referred to the ER fo r further evaluation. The patient denies any fevers, chills, chest pain, nausea, or vomiting. Has h ad some decreased appetite. The patient's symptoms are constant, moderate, progressively worsening. Therefore, he was referred for admission. Past Medical History: Coronary artery disease, status post CABG; essential hypertension; hyperlipide erick; COPD; essential tremors; bladder cancer in 2005. Past Surgical History: Cholecystectomy, back surgery, neck surgery, bladder cancer surgery, leg surg cristino, and hernia repair with mesh. Social History: The patient smokes 2 packs per day since the age of 13. Does not drink any alcohol. No illicit drug use. The patient is . Has a son. Currently independent in his activities of daily living. Allergies: NO KNOWN DRUG ALLERGIES. Medications: List reviewed. Family History: Positive for cancer in the father. Mom of [place]. Review of Systems: An 11-point system reviewed, negative except as per HPI. Physical Examination: Vital Signs: Temperature 98.3, heart rate 73, blood pressure 141/84, respirations 20, O2 99% on room air. General: Awake, alert, oriented x3. Elderly male, appears older than stated age. Frail, cachectic. BMI 19. Ill-appearing. HEENT: Normocephalic, atraumatic. PERRLA. EOMI. Moist mucous membranes. Oropharynx is clear. Po or dentition. Conjunctivae anicteric. Neck: Supple. No JVD. Trachea midline. CV: S1, S2. Regular rate and rhythm. Peripheral pulses weak bilaterally. Respiratory: Moving air well bilaterally. No wheezing or stridor. No use of accessory muscles. Gastrointestinal: Abdomen is soft, nontender, nondistended. Positive bowel sounds. No guarding or rigidity. Extremities: No clubbing, cyanosis, or edema. Neuro: Cranial nerves 2 through 12 intact grossly. No focal neurological deficit. Speech is normal . Laboratory Data: Sodium 139, potassium 5.4, chloride 105, CO2 31, BUN 45, creatinine 1.97, glucose 8 0, calcium 8.4. WBC 7.8, H and H 14.7 and 43.8, platelets 194. Renal ultrasound shows renal parench ymal disease and mild left hydroureteronephrosis. Prostate gland is enlarged. Assessment And Plan: A 72-year-old male with 1.Acute kidney injury. We will start on IV fluids. No baseline to compare with. The patient's miguel a al ultrasound does show some mild left-sided hydronephrosis and parenchymal disease. Nephrology has been consulted. The patient may need urology evaluation. We will screen for stones. Continue with IV fluids and avoid NSAIDs and nephrotoxins. 2.Coronary artery disease, status post coronary artery bypass graft. We will resume home medication s as appropriate. [place] artery and [place] heart without angina. 3.Essential hypertension, stable. Restart home medications. 4.Mixed hyperlipidemia. 5.Chronic obstructive pulmonary disease, chronic bronchitis. We will use albuterol p.r.n. 6.Essential tremor. We will hold primidone for now. 7.History of bladder cancer, currently in remission. 8.Hyperkalemia. The patient received albuterol, dextrose, insulin in the ER. We will continue to m onitor. DVT prophylaxis addressed. Plan: Admit the patient to Med-Surg, [facility] as observation. /HENRIETTA Voice ID: [id number]
[2018-04-24] MEDS: NA CHLORIDE 0.9% 1,000 ML IV SCH ×2 (04:45→11:00)
[2018-04-24 04:58] LABS: Absolute Lymphocytes (CBC) 1.6 K/uL (0.7-4.9); Absolute Monocytes 0.4 K/uL (0.1-1.3); Absolute Neutrophil 3.4 K/uL (1.8-8.0); Basophils % 0.4 % (0-1.3); Eosinophils % 0.7 % (0-4.4); Lymphocytes % 29.6 % (15.3-44.8); MPV 7.9 fL (7.6-11.3); RBC Red Blood Cell Count 3.81 M/uL (4.33-5.43)
[2018-04-24 05:29] LABS: Albumin 2.5 g/dL (3.4-5.0); Bilirubin Total 0.3 mg/dL (0.2-1.0); Potassium 4.3 mmol/L (3.5-5.1); Protein, Total 6.4 g/dL (6.4-8.2)
[2018-04-24] MEDS: HYDROCODONE/APAP 10/325 TAB PO PRN ×3 (06:12→20:13)
[2018-04-24] MEDS: ASPIRIN EC 81 MG TAB PO SCH (08:09)
[2018-04-24] MEDS ORDERED: DULOXETINE 20 MG CAP PO SCH (09:00)
[2018-04-24] MEDS: DULOXETINE 30 MG CAP PO SCH (09:51)
[2018-04-24] MEDS: HYDRALAZINE HCL 20 MG/ML VIAL IV PRN (11:49)
[2018-04-24] MEDS: ALBUTEROL 2.5 MG/3 ML NEB SOL NEB SCH ×2 (13:49→20:00)
[2018-04-24] MEDS: IPRATROPIUM BROM 0.5MG/2.5ML NEB SCH ×2 (13:49→20:00)
--- NOTE | 2018-04-24 15:33 | RAD REPORT ---
EXAM DESCRIPTION: CT - Abdomen Pelvis Wo Contrast - 04/24/2018 3:10 pm CLINICAL HISTORY: Abdominal pain. hydronephrosis on the left, hx of bladder CA COMPARISON: Renal Ultrasound-Complete dated 04/23/2018 TECHNIQUE: CT imaging of the abdomen and pelvis was performed without contrast. Solid organ, bowel a nd vascular assessment is limited due to lack of IV and oral contrast. All CT scans are performed using dose optimization technique as appropriate and may include automated exposure control or mA/KV adjustment according to patient size. FINDINGS: Linear subsegmental atelectasis is present in both lung bases. Cholecystectomy clips. The liver and spleen demonstrate multiple calcified granulomata. Mild thickeni ng of the left adrenal gland is seen. The right adrenal gland is normal. Pancreas is within normal li mits. Multiple cysts are present in both kidneys, including hyperdense cysts as well as hypodense cysts. Sm all stones are also noted in both kidneys. Mild left hydronephrosis is present. This appears to be ca used by 5 mm calculus (1250 HU) in the distal left ureter at the level of the pelvic inlet. No bowel obstruction, free air, free fluid or abscess. Lipoma is noted in the anterior abdomen measur ing 2.4 x 4.2 cm. Aneurysm of the infrarenal abdominal aortic is seen measuring up to 4 cm. The appen venkat is normal. Right total hip arthroplasty is present. Postsurgical postoperative changes are present in lumbar spi ne with mild dextroscoliosis. IMPRESSION: 5 mm stone is present in distal left ureter resulting in mild left hydronephrosis. 4 cm infrarenal abdominal aortic aneurysm. A limited non-contrast examination was performed as detailed.
[2018-04-24 16:15] LABS: UR PROTEIN < 5 mg/dL (<11.9); Urine Protein/Creatinine Ratio ND ratio (<0.15)
--- NOTE | 2018-04-24 17:22 | CON ---
Reason For Consultation: Elevated BUN and creatinine. History Of Present Illness: This is a pleasant 72-year-old gentleman with significant past medical h istory of hypertension, hyperlipidemia, COPD secondary to smoking, essential tremor. The patient was in his regular state of health apparently couple of weeks ago. Because of the essential tremor, the patient was started on treatment for tremor with primidone. Since then, patient's tremor been worse grace. For that reason, the patient's visit with his primary. Repeated lab tests showed elevation in BUN and creatinine. For that reason, patient has been referred to the hospital. The patient over t he night was started on IV fluids. Kidney function has been improved from 1.9 to 1.3. The patient d enied any blood in the urine. Denies nonsteroidal. No IV contrast. Apparently, patient is being degroot ving some decrease in his intake, has foamy urine and nocturia. Renal ultrasound ruled out any obstr uction. Past Medical History: Includes, 1.Coronary artery disease status post CABG x2. 2.Hypertension. 3.Hyperlipidemia. 4.COPD. 5.Bladder cancer status post surgery back in 2005. 6.Essential tremor. Past Surgical History: Includes, 1.Cholecystectomy. 2.Neck surgery. 3.Back surgery. 4.CABG. 5.Bladder surgery. Social History: Active smoker. Denied alcohol. Denied drugs abuse. Allergies: NO KNOWN DRUG ALLERGIES. Family History: Positive for cancer and coronary artery disease. Home Medications: Include breathing treatment, primidone, baclofen, gabapentin, trazodone, simvastat in, and quinapril. Current Medication In The Hospital: Includes Tylenol, aspirin, atorvastatin, baclofen, hydralazine, IV fluid, and trazodone. Review of Systems: Head and Neck: No red eye. No ear pain. GI: No nausea, no vomiting. : No polyuria, no dysuria, no hematuria. Has nocturia. 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 Respiratory: Chronic shortness of breath. Cardiovascular: No chest pain. Endocrine: No polydipsia. Skin: No rash. Neuro: Has a tremor. Musculoskeletal: Has low back pain. Physical Examination: Vital Signs: When I saw the patient, blood pressure 132/68, pulse of 77. Chest: Clear to auscultation. Heart: S1, S2. Regular. Abdomen: Soft, nontender. Extremities: No edema. Laboratory Data: WBC 5.5, H and H 12.3 over 37, platelets 158. Sodium 144, potassium 4.3, bicarb 28 , BUN 37, creatinine 1.4, calcium 7.8. Current Medications: The patient on include aspirin, as above. Assessment And Plan: 1.Acute kidney injury secondary to prerenal, superimposed with gastrointestinal symptoms secondary t o medication, superimposed with CHARLOTTE inhibitor use on the recovery. I going to decrease IV fluid. Ke ep holding CHARLOTTE inhibitor. Keep holding for the time being, and we will follow up. If kid antolin number tomorrow is better, the patient will be cleared from the renal standpoint for discharge pl anning. 2.Hypertension controlled. Keep holding CHARLOTTE inhibitor. 3.Tremor as by primary. 4.Chronic obstructive pulmonary disease. Continue supportive care. AMENA Voice ID: [id number] Report ID: [id number]
--- NOTE | 2018-04-24 18:55 | PN ---
Date of Progress Note: 04/24/2018 Subjective: The patient seen and examined, chart reviewed and case discussed with RN and Dr. Kelsy mcnally. The patient seems to be doing better. Still asking to go downstairs to smoke. I counseled him a gainst that. The patient wanted to go home, but understands that he needs to wait until his kidney f unction improves. Denies any other specific complaints. Medications: List reviewed. Objective: Vital Signs: Temperature 98.8, heart rate 81, blood pressure 170/74, respirations 20, O2 95% on room air. General: Awake, alert, oriented x3. Elderly male, frail, cachectic. BMI 20. CV: S1, S2. Regular rate and rhythm. Peripheral pulses weak bilaterally. Respiratory: Clear to auscultation bilaterally. No wheezing or stridor. Gastrointestinal: Abdomen is soft, nontender, nondistended. Positive bowel sounds. Extremities: No clubbing, cyanosis, edema. Neurologic: Nonfocal. Laboratory Data: Sodium 144, potassium 4.3, chloride 112, CO2 28, BUN 37, creatinine 1.43, glucose 6 6, calcium 7.8, albumin 2.5. WBC 5.5, H and H 12.3 and 37, platelets 158, neutrophils 61%. Urine cu lture is pending. Assessment: A 72-year-old male with: 1.Acute kidney injury, likely secondary to primidone, which has been discontinued. We will continue intravenous fluids. Rate has been adjusted. Creatinine has improved. Kidney function is normalizin g. Appreciate Dr. Aguilar's input. We will continue to monitor. Urine output is adequate. Avoid nonsteroidal anti-inflammatory drugs and nephrotoxins. 2.Coronary artery disease, status post coronary artery bypass grafting, craig artery and craig hea rt without angina, stable. 3.Essential hypertension, stable. 4.Hyperkalemia, corrected. 5.Mixed hyperlipidemia. Continue statin. 6.Chronic obstructive pulmonary disease, chronic bronchitis. We will continue albuterol and ipratro pium p.r.n. 7.Essential tremor. Primidone on hold for now. We will discuss further with Dr. Mendez. 8.History of bladder cancer, currently in remission. Plan: We will continue with IV fluids, monitor kidney function. If improving, will likely discharge in a.m. SA/MODL Voice ID: [id number] Report ID: [id number]
[2018-04-24] MEDS: TRAZODONE 150 MG TAB PO SCH (20:11)
[2018-04-24] MEDS: TIZANIDINE 4 MG TABLET PO SCH (20:12)
[2018-04-24] MEDS: BACLOFEN 10 MG TAB PO SCH ×2 (20:13→21:00)
[2018-04-24] MEDS ORDERED: ATORVASTATIN 20 MG TAB PO SCH (21:00)
[2018-04-24] MEDS ORDERED: TAMSULOSIN 0.4 MG SR CAP PO SCH (21:00)
[2018-04-24] MEDS ORDERED: GABAPENTIN 300 MG CAP PO SCH (21:00)
[2018-04-25] MEDS: NA CHLORIDE 0.9% 1,000 ML IV SCH (00:51)
[2018-04-25] MEDS: ALBUTEROL 2.5 MG/3 ML NEB SOL NEB SCH ×2 (02:00→08:30)
[2018-04-25] MEDS: IPRATROPIUM BROM 0.5MG/2.5ML NEB SCH ×2 (02:00→08:30)
[2018-04-25] MEDS: HYDROCODONE/APAP 10/325 TAB PO PRN ×2 (02:43→07:58)
[2018-04-25 04:48] LABS: Absolute Lymphocytes (CBC) 1.1 K/uL (0.7-4.9); Absolute Monocytes 0.4 K/uL (0.1-1.3); Basophils % 0.5 % (0-1.3); Eosinophils % 0.6 % (0-4.4); Hematocrit 36.3 % (39.6-49.0); Lymphocytes % 24.4 % (15.3-44.8); MPV 7.6 fL (7.6-11.3); Monocytes % 8.4 % (3.3-12.3); RBC Red Blood Cell Count 3.75 M/uL (4.33-5.43)
[2018-04-25 05:10] LABS: Albumin 2.5 g/dL (3.4-5.0); Bilirubin Total 0.3 mg/dL (0.2-1.0); Potassium 3.7 mmol/L (3.5-5.1); Protein, Total 6.3 g/dL (6.4-8.2)
[2018-04-25] MEDS: ASPIRIN EC 81 MG TAB PO SCH (08:00)
[2018-04-25] MEDS: DULOXETINE 30 MG CAP PO SCH (08:00)
[2018-04-25] MEDS ORDERED: MONTELUKAST 10 MG TAB PO SCH (09:00)
--- NOTE | 2018-04-26 03:34 | DS ---
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 Aguilar with Nephrology. Discharge Diagnoses: 1.Acute kidney injury, likely secondary to primidone, resolved. Kidney function normalized. 2.Coronary artery disease, status post CABG, alatna artery and alatna heart, without angina. 3.Hyperkalemia, corrected. 4.Left hydronephrosis secondary to 5 mm ureteral stone, no flank tenderness. 5.Essential hypertension, stable. 6.Mixed hyperlipidemia, statin. 7.COPD, chronic bronchitis. 8.Nicotine dependence with cigarette smoking, continuous, counseled. 9.Essential tremor. Primidone discontinued. 10.History of bladder cancer, currently in remission. Hospital Course: The patient is a 72-year-old male with past medical history of COPD, heart disease, hypertension, tremors, who has been on primidone for the past 6 months and has had worsening kidney function. The patient was then referred by his urologist for evaluation of his abnormal kidney funct ion. His creatinine was elevated at 1.97. He was started on IV fluids. Primidone was discontinued. Renal ultrasound did show some parenchymal disease and hydronephrosis. CT scan was done to rule ou t any mass or stone. The patient does have history of bladder cancer, which is currently in remissio n. CT scan did show 5-mm stone, which usually is able to pass. The patient was placed on Flomax wit h urine screening. Urology unfortunately was unavailable. The patient was seen by Nephrology, Dr. Glenna martinez. His kidney function improved with IV fluids and normalized. His hyperkalemia was corrected . The patient's potassium remained stable. He did not have any difficulty urinating. The patient d id well overall and was cleared for discharge from Nephrology standpoint. His urine culture did not show any growth. He was then discharged home in a stable condition. Activity: As tolerated. Medications: As per medication reconciliation list. Followup: Follow up with primary care physician in 2-3 days. Follow up with basket hand weaver, Dr. Patrick medrano, in 2 weeks. Establish care with urologist, Dr. Canada, in 1 week. Return to ER for worsening co ndition. Diet: Heart healthy. Physical Examination: General: Awake, alert, oriented x3. CV: S1, S2. Regular rate and rhythm. Respiratory: Moving air well bilaterally. No wheezing. Gastrointestinal: Abdomen is soft, nontender, nondistended. Positive bowel sounds. Extremities: No clubbing, cyanosis, or edema. Neurologic: Nonfocal. SA/MODL Voice ID: [id number] Report ID: [id number]
== END 2018-04-25 10:43 | disposition home or self-care (01) ==
LOC: ER 09:54 → ERHOLD 13:29 → 4TH 14:58
PROVIDERS: ADMIT Family Medicine; ATTEND Family Medicine
DX: N17.9 Acute kidney failure, unspecified (principal); E87.5 Hyperkalemia; N13.2 Hydronephrosis with renal and ureteral calculous obstruction; I25.10 Atherosclerotic heart disease of native coronary artery without angina pectoris; I10 Essential (primary) hypertension; J44.9 Chronic obstructive pulmonary disease, unspecified; E78.2 Mixed hyperlipidemia; G25.0 Essential tremor; F17.210 Nicotine dependence, cigarettes, uncomplicated; Z85.51 Personal history of malignant neoplasm of bladder; Z95.1 Presence of aortocoronary bypass graft
CPT/HCPCS: 96361; 87088; 85025 ×3; 80048; 36415 ×2; 80076; 82570 ×2; 80053 ×2; 84156 ×2; 74176; 76770; 94640; 94760 ×6; 96375; 96374; 99285; J0360 ×4; J7030 ×5; G0378 ×2; 81003; 81015; 87086

== ENCOUNTER 2018-09-23 06:53 | Day surgery (SDC) | payer OTHER ==
[2018-09-20 09:08] LABS: Basophils % 0.3 % (0-1.3); Hematocrit 43.2 % (39.6-49.0); Lymphocytes % 15.9 % (15.3-44.8); MPV 8.3 fL (7.6-11.3); RBC Red Blood Cell Count 4.71 M/uL (4.33-5.43)
[2018-09-20 09:18] LABS: Potassium 4.9 mmol/L (3.5-5.1)
[2018-09-20 09:24] LABS: Protime INR 0.96
--- OUTSIDE RECORDS SUMMARY | 2018-09-23 06:55 | XMS REPORT | Clinical Summary ---
:1945 Author Organization [facility] Address [address] [place] [address] Care Team Providers Name Role Phone Mykel Crawford MD Primary Care Provider Allergies No Known Allergies Medications Medication Sig Dispensed Refills Start Date End Date Status gabapentin Take 600 mg by mouth 3 (three) times a day. 1800mg po hs and 0 09/16/2015 Active (NEURONTIN) 300 600mg po tid MG capsule HYDROcodone-aceta 2 tablets. q 0 11/02/2015 Active minophen (NORCO 4-6 hours 10-325) 10-325 mg per tablet quinapril 0 11/01/2015 Active (ACCUPRIL) 20 MG tablet traZODone 0 09/16/2015 Active (DESYREL) 150 MG tablet aspirin (ECOTRIN) Take 81 mg by 0 Active 81 MG enteric mouth. coated tablet simvastatin 0 04/27/2016 Active (ZOCOR) 40 MG tablet tiZANidine 0 04/28/2016 Active (ZANAFLEX) 4 MG tablet magnesium oxide Take 400 mg 0 Active (MAG-OX) 400 mg by mouth tablet daily. ipratropium-albut 0 08/09/2017 Active osmar (DUO-NEB) 0.5-2.5 mg/mL nebulizer montelukast Take 10 mg by 0 Active (SINGULAIR) 10 mg mouth tablet nightly. albuterol (PROAIR Inhale 2 0 Active HFA,PROVENTIL puffs every 6 HFA,VENTOLIN HFA) (six) hours 90 mcg/actuation as needed for inhaler wheezing. PRIMIDONE ORAL Take 50 mg by 0 Active mouth 2 (two) times a day. clopidogrel 0 10/20/2015 Discontinued (PLAVIX) 75 mg 8 tablet atenolol 0 04/12/2016 Discontinued (TENORMIN) 25 MG 8 tablet HYDROcodone-aceta Take 1 tablet 0 Discontinued minophen (NORCO) by mouth. 8 10-325 mg per tablet iusk-ncgd-iwq-yuc Take by 0 Discontinued -zqa-rmcc-oxu mouth. 8 (Therapy [phone] completed) mg tablet cholecalciferol, Take 5,000 0 Discontinued vitamin D3, Units by 8 (VITAMIN D3) mouth daily. 1,000 unit tablet selenium 50 mcg Take 50 mcg 0 Discontinued tablet by mouth 2 8 (two) times a day. meloxicam (MOBIC) 0 09/11/2017 Discontinued 7.5 mg tablet 8 DULoxetine 0 07/27/2017 Discontinued (CYMBALTA) 30 MG 8 capsule celecoxib Take 1 18 capsule 0 11/09/2017 Discontinued (CeleBREX) 200 MG capsule (200 8 capsule mg total) by mouth daily for 18 days. With food DULoxetine Take 30 mg by 0 Discontinued (CYMBALTA) 30 MG mouth daily. 8 capsule Active Problems Problem Noted Date Aftercare following surgery of the musculoskeletal system 03/01/2018 Complication internal fixation device such as nail, plate, or gian 01/18/2018 Overview: Added automatically from request for surgery [id number] Postlaminectomy syndrome, lumbar region 01/18/2018 Overview: Added automatically from request for surgery [id number] Complication of internal fixation device 12/07/2017 Chronic [...] (Primary Dx) 02/08/2018 Office Visit Orthopedic Surgery [facility], Aftercare following Tarik Castellon MD surgery of the musculoskeletal system (Primary Dx) 01/31/2018 Orders Only Orthopedic Surgery Linda Harden PA-C 01/30/2018 Surgery Orthopedic Surgery [facility], Remove L3-4-5 [...] 01/21/2018 Prep for Surgery Orthopedic Surgery Linda Harden PA-C 01/18/2018 Prep for Surgery Orthopedic Surgery Dereck, Complication internal fixation device such as nail, plate, or gian, initial encounter (HCC) ( Primary Dx); Linda Castellon Arthrodesis status; PA-C Postlaminectomy syndrome, lumbar region 01/17/2018 Documentation Orthopedic Surgery Linda Harden, NICOLETTE-C 01/04/2018 Office Visit Orthopedic Surgery [facility], Complication of internal fixation device, sequela (Primary [...] sciatica, sciatica laterality unspecified 11/09/2017 Hospital Encounter Tarik Gann MD 11/09/2017 Office Visit Orthopedic Surgery [facility], [...] joint; History of right hip replacement after 09/22/2017 Family History Medical History Relation Name Comments [...] Vital Signs Vital Sign Reading Time Taken Comments Blood Pressure 183/78 01/30/2018 3:46 PM DANCER OR CHOREOGRAPHER Pulse 57 01/30/2018 3:46 PM DANCER OR CHOREOGRAPHER Temperature 37.1 C (98.7 F) 01/30/2018 2:55 PM DANCER OR CHOREOGRAPHER Respiratory Rate 19 01/30/2018 2:55 PM DANCER OR CHOREOGRAPHER Oxygen Saturation 96% 01/30/2018 2:55 PM DANCER OR CHOREOGRAPHER Inhaled Oxygen Concentration - - Weight 54.9 kg (121 lb) 02/08/2018 10:51 AM DANCER OR CHOREOGRAPHER Height 172.7 cm (5' 8") 02/08/2018 10:51 AM DANCER OR CHOREOGRAPHER Body Mass Index 18.4 02/08/2018 10:51 AM DANCER OR CHOREOGRAPHER Plan of Treatment Health Maintenance Due Date Last Done Comments COLONOSCOPY SCREENING 1996 SHINGLES VACCINES (#1) 1996 65+ PNEUMOCOCCAL VACCINE (1 of 2 - PCV13) 10/20/2011 INFLUENZA VACCINE 09/05/2018 Procedures Procedure Name Priority Date/Time Associated Comments Diagnosis XR LUMBAR SPINE 2 OR Routine 02/08/2018 10:59 Orthopedic Results for this 3 VW AM DANCER OR CHOREOGRAPHER aftercare procedure are in the results section. SURGICAL PATHOLOGY Routine 01/30/2018 12:17 Results for this REQUEST PM DANCER OR CHOREOGRAPHER procedure are in the results section. [place] AN ELECTIVE Routine 01/30/2018 10:30 ENDOTRACHEAL AIRWAY AM DANCER OR CHOREOGRAPHER Procedure Note - Sunday Barth CRNA - 01/30/2018 10:30 AM DANCER OR CHOREOGRAPHER ANESTHESIA INTUBATION Date/Time: 01/30/2018 10:11 AM Performed by: Sunday Barth CRNA Authorized by: Sohan Yung MD Location: OR Urgency: Elective Difficult Airway: No Anesthesiologist: Sohan Yung MD Resident/SPIKE DRIVER/AA: Sunday Barth CRNA Performed by: resident/SPIKE DRIVER/AA Preoxygenated with 100% O2: Yes Mask Ventilation: [...] Attempts at Approach: 1 HEMILAMINECTOMY, SPINE, 01/30/2018 10:04 AM Complication internal fixation LUMBAR, SINGLE LEVEL, DANCER OR CHOREOGRAPHER device such as nail, plate, or POSTERIOR APPROACH gian, initial encounter (HCC) Arthrodesis status Postlaminectomy syndrome, lumbar region Case Notes POSSIBLE EXTENDED STAY Special Needs POSSIBLE EXTENDED STAY, Rajeev table, ImpulseSavee Click X removal system, universal removal set, WRS palencia and fusion sets, Ag matrix (5x2.5 cm) ESTIMATED GFR STAT 01/30/2018 8:37 AM Results for this DANCER OR CHOREOGRAPHER procedure are in the results section. BASIC METABOLIC STAT 01/30/2018 8:37 AM Results for this PANEL DANCER OR CHOREOGRAPHER procedure are in the results section. HC COMPLETE BLD STAT 01/30/2018 8:37 AM Results for this COUNT W/AUTO DIFF DANCER OR CHOREOGRAPHER procedure are in the results section. IR FLUOROSCOPY Routine 12/14/2017 8:56 AM Complication of Results for this GUIDED LOCAL DANCER OR CHOREOGRAPHER internal fixation procedure are in INJECTION device, [...] right hip the results replacement section. after 09/22/2017 Results XR Lumbar Spine 2 Or 3 Vw (02/08/2018 10:59 AM DANCER OR CHOREOGRAPHER) Specimen Narrative Performed At [facility] and lateral x-rays of the lumbar spine today demonstrate postoperative HM RADIANT changes at multiple levels.The previously noted pedicle screws are now absent.There is no change in overall alignment compared to those of the previous study. Performing Organization Address City/[facility]/Zipcode Phone Number RADIANT [address] [place] [address] Surgical pathology request (01/30/2018 12:17 PM DANCER OR CHOREOGRAPHER) [facility] DEPARTMENT OF PATHOLOGY AND GENOMIC MEDICINE Surgical pathology See link below [facility] DEPARTMENT OF report for PDF Lab PATHOLOGY AND Report GENOMIC MEDICINE Result status This is Final [facility] DEPARTMENT OF Report for PATHOLOGY AND [id number] GENOMIC MEDICINE Specimen Performing Organization Address City/State/Zipcode Phone Number [facility] DEPARTMENT OF PATHOLOGY AND [address] [place] [address] GENOMIC MEDICINE Estimated GFR (01/30/2018 8:37 AM DANCER OR CHOREOGRAPHER) Estimated GFR 75 mL/min/1.73 [facility] ORTHODOXY Comment: [facility] CatergoryUnitsInterpretation G1 >=90 Normal or high G2 60-89Mildly decreased [id number] to moderately decreased R8q32-26Fdkbjixeut to severely decreased G4 15-29Severely decreased G5 <15Kidney failure The eGFR was calculated using the Chronic Kidney Disease Epidemiology Collaboration (CKD-EPI) equation. Interpretation is based on recommendations of the National Kidney Foundation-Kidney Disease Outcomes Quality Initiative (NKF-KDOQI) published in 2014. Specimen Plasma specimen Performing Organization Address City/State/Zipcode Phone Number [facility] DEPARTMENT OF PATHOLOGY AND [address] [place] [address] [facility] [address] [place] [phone] CBC with platelet and differential (01/30/2018 8:37 AM DANCER OR CHOREOGRAPHER) WBC 6.11 4.50 - 11.00 k/uL [facility] RBC 4.47 4.40 - 6.00 m/uL [facility] HGB 14.2 14.0 - 18.0 g/dL [facility] HCT 44.5 41.0 - 51.0 % [facility] MCV 99.6 82.0 - 100.0 fL [facility] MCH 31.8 27.0 - 34.0 pg [facility] MCHC 31.9 31.0 - 37.0 g/dL [facility] RDW - SD 51.2 37.0 - 55.0 fL [facility] MPV 9.4 8.8 - 13.2 fL [facility] Platelet count 141 (L) 150 - 400 k/uL [facility] Neutrophils 63.9 39.0 - 69.0 % [facility] Lymphocytes 29.1 25.0 - 45.0 % [facility] Monocytes 6.2 0.0 - 10.0 % [facility] Eosinophils 0.5 0.0 - 5.0 % [facility] Basophils 0.3 0.0 - 1.0 % [facility] Specimen Blood Performing Organization Address City/[facility]/Zipcode Phone Number [facility] DEPARTMENT OF PATHOLOGY AND [address] [place], [place] [id number] [place] [id number] Basic metabolic panel (01/30/2018 8:37 AM DANCER OR CHOREOGRAPHER) Sodium 137 135 - 148 mEq/L [facility] Potassium 5.4 (H) 3.5 - 5.0 mEq/L [facility] Chloride 102 98 - 112 mEq/L [facility] CO2 27 24 - 31 mEq/L [facility] Anion gap 8@ANIO 7 - 15 mEq/L [facility] BUN 14 8 - 23 mg/dL [facility] Creatinine 1.00 0.70 - 1.20 mg/dL [facility] Glucose 85 65 - 99 mg/dL [facility] Calcium 8.8 8.8 - 10.2 mg/dL [facility] Specimen Plasma specimen Performing Organization Address City/State/Zipcode Phone Number [facility] DEPARTMENT OF PATHOLOGY AND [address] [place] [address] GENOMIC MEDICINE [facility] [address] [place] [address] IR Fluoroscopy Guided Local Injection (12/14/2017 8:56 AM DANCER OR CHOREOGRAPHER) Specimen Narrative Performed At EXAMINATION:Fluoroscopic-guided bilateral L3-L5 hardware [...] hardware infiltration with local anesthetic and steroids. [id number] Procedure Note Interface, Radiology Results Incoming - 12/14/2017 11:31 AM DANCER OR CHOREOGRAPHER EXAMINATION: Fluoroscopic-guided bilateral L3-L5 hardware infiltration with [...] hardware infiltration with local anesthetic and steroids. [id number] Performing Organization Address City/State/Zipcode Phone Number RAD[facility] [address] [place] [address] MRI Lumbar Spine Wo Contrast (11/30/2017 8:30 AM CDT) Specimen Narrative Performed At EXAMINATION: MRI LUMBAR SPINE WO CONTRAST RADISRIDEVI CLINICAL HISTORY: M96.1 Postlaminectomy syndromenot elsewhere classified, Z98.1 Arthrodesis status, Back [id number] conservative txpersistent sx COMPARISON:Lumbar spine x-rays from [...] evaluated with MRI thoracic spine or myelogram. [facility]-[id number] Procedure Note Hm Interface, Radiology Results Incoming [...] evaluated with MRI thoracic spine or myelogram. [facility]-[id number] Performing Organization Address City/State/Zipcode Phone Number [facility] [address] [place] [address] NM Bone Scan External Study (10/22/2017 7:51 AM CDT) Specimen Narrative Performed At This exam was not acquired at a [facility] facility and has not been HM RADIANT interpreted by a [facility] Provider.The exam was imported into our imaging system for comparisons purposes. Performing Organization Address [facility] Phone Number MADAN BRASHERANT [address] [place] [address] XR Hip 2-3 View Right (10/09/2017 9:02 AM CDT) Specimen Narrative Performed At [facility] and lateral x-ray of the right hip reveals a total hip prosthesis to be HM RADIANT in satisfactory position.I see no significant bony abnormalities around the area and no lucent zone around the implants. Performing Organization Address [facility]/Zipcode Phone Number MADAN RADIANT [address] [place] [address] XR Lumbar Spine Complete 4+ Vw (10/09/2017 9:02 AM CDT) Specimen Narrative Performed At Lumbar spine x-rays and [...] space with sclerotic reaction. Performing Organization Address [facility] Phone Number MADAN BRASHERANT [address] [place] [address] after 09/22/2017 Insurance Payer Benefit Plan / Subscriber ID Effective Dates Phone Address Type Group HUMANA MEDICARE HU[employer]NA MEDICARE xxxxxxxxx 2014-Present PPO PPO/PFFS/ERS [facility] Advance Directives Type Date Recorded Patient Certified Alcohol And Drug Counselor Explanation Advance Directives, Living 01/30/2018 6:56 AM Will and Medical Power of Curing Room Worker
--- OUTSIDE RECORDS SUMMARY | 2018-09-23 06:56 | XMS REPORT ---
:1945 Author Organization [facility] Address [address] [place] [address] [address]. [address] [place] [address] Care Team Providers Name Role Phone Unavailable Unavailable Unavailable Payers Payer Name Policy Type Policy Number Effective Date Expiration Date Problems This patient has no known problems. Allergies, Adverse Reactions, Alerts Allergy Name Allergy Status Severity Reaction(s) Onset Inactive Treating Comments Type Date Date Clinician No Known Drug DA Active U Intolerances 8- 00:00: 00 Medications This patient has no known medications.
[2018-09-23] MEDS ORDERED: NA CHLORIDE 0.9% 500 ML ONE (07:08)
[2018-09-23] MEDS ORDERED: LIDOCAINE 1% MPF 30 ML VIAL ONE (07:08)
[2018-09-23] MEDS ORDERED: HEPA 1000U/500MLS 2,000 UNIT/1,000 ML BAG IV ONE (07:08)
[2018-09-23] MEDS ORDERED: NA CHLORIDE 0.9% 0 ML ONE (07:38)
[2018-09-23] MEDS ORDERED: ATROPINE SULF 1 MG/10 ML SYR IV ONE (07:38)
[2018-09-23] MEDS ORDERED: FENTANYL CITR 100 MCG/2 ML ONE ×2 (07:38→08:43)
[2018-09-23] MEDS ORDERED: MIDAZOLAM HCL 2 MG/2 ML INJ ONE (07:38)
[2018-09-23] MEDS ORDERED: HEPARIN 5000 UNIT/ML 1 ML VIAL ONE (08:20)
[2018-09-23] MEDS ORDERED: HYDROCODONE/APAP 10/325 TAB PO ONE (09:55)
[2018-09-23] MEDS ORDERED: HYDROCODONE/APAP 10/325 TAB ONE (10:58)
--- NOTE | 2018-09-23 12:07 | OP ---
Surgeon: Jamie Cifuentes MD Primary Care Physician: Mykel Crawford M.D. Procedure: Left heart catheterization, coronary angiography, saphenous vein graft angiography, left internal mammary artery angiography, bilateral selective carotid angiography. No percutaneous pablo ry intervention or other intervention was done. 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 Left internal mammary was used for graft, but had no blood flow to the heart, only to the lateral ves sels to the chest wall. The right internal mammary was seen not to be attached to any heart bypasses . His left coronary system was diffusely irregular. The lumens were diffusely irregular, but there was no stenosis even more than 20%. He has a left dominant system. The left coronary injection supp lies blood flow to the right coronary, distal portion. 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 The left ventriculogram showed normal global ejection fraction. There was inferior hypokines is. Normal left ventricular end-diastolic pressure. An aortic root shot was done to make sure we di d not overlook any grafts and we did see anything there either. 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 Left internal carotid artery has ectasia but no stenosis. Procedure In Detail: The patient was brought to the cardiac dentures lab technician in a fasting state, sedated wit h Versed and fentanyl. Prepared and draped in usual sterile fashion. Right femoral artery was used, entered with an 18-gauge needle, cannulated with a short J-wire, 4-[place]zerbaijani sheath. We used a JL4 to angiogram the left coronary, a JR4 to angiogram right coronary. Saphenous vein graft stumps, left in ternal mammary artery, and bilateral selective carotid angiography was done, all using the JR4. At t he end of the procedure, we decided to look for grafts. We placed a pigtail catheter first in the le ft ventricle, took an LV gram, pulled into the aorta and angiogram that using 60 mL of contrast in th e aortic root. At the end of the procedure, the catheter was withdrawn over a wire. A sheath shot w as done. Anatomy was such that we elected to use manual pressure to close as there is only a 4-Frenc h hole and diffusely diseased iliac arteries and common femoral arteries were noted. 2500 units of h eparin was given right as we were getting ready to cannulate the carotids. Complications From The Procedure: None. Estimated Blood Loss: 10 mL. Recommendation is that he consider right carotid endarterectomy. DEMAR/HENRIETTA Voice ID: [id number] Report ID: [id number]
== END 2018-09-23 15:20 | disposition home or self-care (01) ==
LOC: CCL 06:53
PROVIDERS: ATTEND Internal Medicine
DX: I25.119 Atherosclerotic heart disease of native coronary artery with unspecified angina pectoris (principal); I25.709 Atherosclerosis of coronary artery bypass graft(s), unspecified, with unspecified angina pectoris; I25.82 Chronic total occlusion of coronary artery; I65.21 Occlusion and stenosis of right carotid artery; I71.4 Abdominal aortic aneurysm, without rupture; I10 Essential (primary) hypertension; E78.2 Mixed hyperlipidemia; F17.210 Nicotine dependence, cigarettes, uncomplicated; Z82.49 Family history of ischemic heart disease and other diseases of the circulatory system
CPT/HCPCS: 85025; 80048; 36415; 85610; 85730; 93567; 93459; 36222; C1893; J1644; J2250; J3010 ×2; 93458; J0583